=== PATIENT | male | born 1985 | race Caucasian/White ===

== ENCOUNTER 2020-01-10 22:12 | Emergency (ER) | payer MEDICAID ==
[~2020-01-10] VITALS: Ht 177.8 cm; Wt 95.3 kg
--- NOTE | 2020-01-11 01:46 | NUR ---
PT ROADTESTED. AMBULATORY W/ STEADY GAIT
--- NOTE | 2020-01-11 05:16 | NUR ---
Pt requesting to be discharged home. Pt ok to be discharged per Dr Garcia. Patient discharged to home in stable condition. Written and verbal after care instructions given. Patient verbalizes understanding of instruction.Patient is awake and alert to self, day, and place. Pt ambulatory with a steady gait
[2020-01-11 05:18] VITALS: BP 134/78
== END 2020-01-11 05:18 | disposition home or self-care (01) ==
LOC: ER 22:15
DX: F10.129 Alcohol abuse with intoxication, unspecified (principal); Y90.9 Presence of alcohol in blood, level not specified

== ENCOUNTER 2020-02-21 21:08 | Emergency (ER) | payer MEDICAID ==
[~2020-02-21] VITALS: Ht 177.8 cm; Wt 95.3 kg
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
[2020-02-21] MEDS ORDERED: NALOXONE PREFILLED SYRINGE 2 MG/2 ML SYRINGE ONE (21:46)
[2020-02-21] MEDS ORDERED: CT SWABBABLE VALVE TRANS SET 1 EA INFUS.SET MC ONE (21:47)
[2020-02-21] MEDS ORDERED: IOHEXOL-300 100 ML VIAL IV ONE (21:47)
[2020-02-21] MEDS ORDERED: IV NS 0.9% 250 ML IV ONE (21:48)
[2020-02-21 21:49] LABS: EOSINOPHILS % (AUTO) 1.8 % (0.0-6.0); HEMATOCRIT 39 % (39-51); LYMPHOCYTES # (AUTO) 2.6 /CMM (0.8-4.8); LYMPHOCYTES % (AUTO) 53.8 % (20.0-44.0); MEAN CORPUSCULAR HGB CONC 33 g/dl (31.0-36.0); MEAN CORPUSCULAR VOLUME 91 fL (80-96); MONOCYTES # (AUTO) 0.6 /CMM (0.1-1.30); MONOCYTES % (AUTO) 12.3 % (2.0-12.0); NEUTROPHILS # (AUTO) 1.5 /CMM (1.8-8.9); NEUTROPHILS % (AUTO) 31.1 % (43.0-81.0); PLATELET COUNT (AUTO) 113 /CMM (150-450); RED BLOOD CELL COUNT(AUTO) 4.31 MIL/uL (4.5-6.0); WHITE BLOOD COUNT (AUTO) 4.8 K/uL (4.3-11.0)
[2020-02-21 21:59] LABS: CALCIUM, SERUM 8.5 mg/dL (8.5-10.1); CARBON DIOXIDE 26 mmol/L (21-32); CHLORIDE 101 mmol/L (98-107); CREATININE 0.5 mg/dL (0.6-1.3); GLUCOSE 127 mg/dL (74-106); POTASSIUM 3.2 mmol/L (3.5-5.1); SODIUM SERUM 141 mmol/L (136-145); UREA NITROGEN, BLOOD 3 mg/dL (7-18)
[2020-02-21] MEDS ORDERED: NALOXONE PREFILLED SYRINGE 2 MG/2 ML SYRINGE IV ONE (22:00)
--- NOTE | 2020-02-21 22:00 | NUR ---
PT TAKEN TO RADIOLOGY FOR CT
[2020-02-21 22:01] LABS: BILIRUBIN,URINE Negative (NEGATIVE); COLOR,URINE YELLOW (YELLOW); LEUKOCYTE ESTERASE ,URINE Negative (NEGATIVE); NITRITE, URINE Negative (NEGATIVE); PROTEIN,URINE Trace mg/dl (NEGATIVE); UGLUCOSE Negative (NEGATIVE); UROBILINOGEN,URINE 0.2 EU/dL (0.2)
[2020-02-21 22:07] LABS: ALANINE AMINOTRANSFERASE 142 U/L (12-78); ALBUMIN 3.6 g/dL (3.4-5.0); ALCOHOL, BLOOD 723 mg/dL (0-0); ALKALINE PHOSPHATASE 213 U/L (46-116); ASPARTATE AMINOTRANSFERASE 126 U/L (15-37); BILIRUBIN,DIRECT 0.2 mg/dL (0.0-0.2); BILIRUBIN,TOTAL 0.3 mg/dL (0.2-1.0); TOTAL PROTEIN, SERUM 8.1 g/dL (6.4-8.2)
[2020-02-21 22:15] LABS: ACETAMINOPHEN < 10 ug/ml (10-30)
--- NOTE | 2020-02-21 22:15 | NUR ---
PT BACK FROM RADIOLOGY
[2020-02-21] MEDS ORDERED: IV NS 0.9% 1,000 ML BAG IV ONE (22:30)
[2020-02-21 22:43] LABS: BACTERIA,URINE None seen /HPF (None Seen); RBC,URINE 0-2 /HPF (0-2); SQUAMOUS EPITHELIAL CELL,UR Few /HPF (None Seen); WBC,URINE 0-2 /HPF (0-3)
--- NOTE | 2020-02-21 23:54 | NUR ---
Patient is resting comfortably in bed with eyes closed. Easily aroused. VSS
[2020-02-22] MEDS ORDERED: IV NS 0.9% 1,000 ML BAG IV ONE
[2020-02-22] MEDS ORDERED: ACETAMINOPHEN 325 MG TABLET PO PRN (00:30)
[2020-02-22] MEDS ORDERED: LORAZEPAM INJ 2 MG/ML VIAL IV PRN (00:30)
[2020-02-22] MEDS ORDERED: ONDANSETRON HCL/PF 4 MG/2 ML VIAL IVP PRN (00:30)
[2020-02-22] MEDS ORDERED: Z GUARD REMEDY 2 OZ OINT TP PRN (00:30)
[2020-02-22] MEDS ORDERED: Thiamine 100 MG in IV D5W 50 ML IV SCH (00:30)
[2020-02-22] MEDS ORDERED: Thiamine 100 MG/ML VIAL ONE (00:30)
[2020-02-22] MEDS ORDERED: IV NS 0.9% 1,000 ML IV PRN (00:30)
--- NOTE | 2020-02-22 02:52 | NUR ---
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 PT STATES "I'M OKAY AND I DONT HAVE PAIN." PT CONNECTED TO THE LEAD COOK AND POX. WILL CONTINUE TO MONITOR.
--- NOTE | 2020-02-22 06:31 | NUR ---
Pt awake and alert however remains somnelent. Will cont to monitor pt.
[2020-02-22] MEDS ORDERED: POTASSIUM CHLORIDE 20 MEQ TAB.PRT.SR PO ONE (07:00)
[2020-02-22] MEDS ORDERED: FOLIC ACID 1 MG TABLET GT SCH (09:00)
[2020-02-22] MEDS ORDERED: FAMOTIDINE/PF INJ 20 MG/2 ML VIAL IV SCH (09:00)
[2020-02-22] MEDS ORDERED: MULTIVITAMINS,THERAGRAN 1 UDTAB TABLET PO SCH (09:00)
--- NOTE | 2020-02-22 13:12 | NUR ---
Patient does not wish to proceed with medical care recommended by Dr. Villanueva. Patient given information related to possible complications, up to and including , which could occur as a result of leaving the hospital at this time. Patient verbalizes understanding of risks involved due to leaving against medical advice. Patient has signed AMA form. Ambulatory with steady gait.
[2020-02-22 13:19] VITALS: BP 140/88
== END 2020-02-22 13:19 | disposition left against medical advice (07) ==
LOC: ER 21:11 → UNDOADMOB 02-22 01:42 → INTOOBSV 02-22 01:42 → OBSER 02-22 01:42 → OBSVTOIN 02-22 01:42 → TRANSITION 02-22 08:11 → OBSER 02-22 08:11
DX: S00.03XA Contusion of scalp, initial encounter (principal); F10.129 Alcohol abuse with intoxication, unspecified; R41.82 Altered mental status, unspecified; R94.31 Abnormal electrocardiogram [ECG] [EKG]; Y90.8 Blood alcohol level of 240 mg/100 ml or more; V49.49XA Driver injured in collision with other motor vehicles in traffic accident, initial encounter; Y93.89 Activity, other specified; Y92.488 Other paved roadways as the place of occurrence of the external cause; Y99.8 Other external cause status
CPT/HCPCS: 36415 ×2; 70450; 71260; 72125; 74177; 80048; 80076; 80299; 80307; 80320 ×2; 81001; 84484; 85025; 87081; 93005; 96361 ×2; 96365; 96375; 99285; J2310; J3411 ×2; J3490 ×2; J7030; J7050; J7060; Q9967; G0480